=== PATIENT | male | born 1950 | race Caucasian/White ===

== ENCOUNTER 2018-04-21 08:48 | Emergency (ER) | payer MEDICARE ==
[~2018-04-21] VITALS: Ht 182.9 cm; Wt 97.5 kg
[~2018-04-21 08:48] MED LIST: HYDR-971 PO
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
[2018-04-21 10:41] VITALS: BP 140/92
--- NOTE | 2018-04-21 10:48 | RAD ---
Examination: RIBS BILAT PA CXR 4+V History: fall yesterday; pain Comparison/Correlation: None Findings: Total of 8 images of the ribs were obtained bilaterally. This includes 2 frontal views of the chest. Heart size and bony vasculature are normal. No infiltrate or pneumothorax. No pleural effusion. No fracture or bone destruction. Visualized soft tissues are unremarkable. Impression: No acute fracture. Electronically signed by: Surinder Mosley MD (04/21/2018 10:44 AM) [id number]
== END 2018-04-21 10:42 | disposition home or self-care (01) ==
LOC: ER 08:48
DX: S20.219A Contusion of unspecified front wall of thorax, initial encounter (principal); S80.812A Abrasion, left lower leg, initial encounter; E11.9 Type 2 diabetes mellitus without complications; J44.9 Chronic obstructive pulmonary disease, unspecified; I10 Essential (primary) hypertension; F17.210 Nicotine dependence, cigarettes, uncomplicated; F10.20 Alcohol dependence, uncomplicated; Z88.6 Allergy status to analgesic agent; Z88.8 Allergy status to other drugs, medicaments and biological substances; Y90.9 Presence of alcohol in blood, level not specified; W18.09XA Striking against other object with subsequent fall, initial encounter; Y93.01 Activity, walking, marching and hiking; Y92.098 Other place in other non-institutional residence as the place of occurrence of the external cause; Y99.8 Other external cause status
CPT/HCPCS: 71111; 99284

== ENCOUNTER 2019-07-06 11:15 | Emergency (ER) | payer MEDICARE ==
[~2019-07-06] VITALS: Ht 182.9 cm; Wt 101.2 kg
[~2019-07-06 11:15] MED LIST changes: +HYDR-3165 PO; -HYDR-971 PO
[2019-07-06] MEDS ORDERED: predniSONE 20 MG TABLET PO ONE (12:00)
[2019-07-06] MEDS ORDERED: LEVO500T59 PO (12:02)
[2019-07-06] MEDS ORDERED: PRED50TA PO (12:02)
[2019-07-06 12:15] VITALS: BP 123/61
--- NOTE | 2019-07-06 12:15 | RAD ---
PA and lateral views of the chest. Comparison: None. Indication: Shortness of air Findings: The heart size is normal. No pneumothorax or effusion. No air space or interstitial disease. The bony structures are intact. Impression: 1. No acute cardiopulmonary process. Electronically signed by: Ayaz Oquendo MD (07/06/2019 12:12 PM) [facility]
--- NOTE | 2019-07-06 14:35 | PHYS DOC ---
Past History Past Medical History: Anxiety, COPD, Depression, Diabetes, Hypertension Past Surgical History: Hip Replacement, Other Additional Past Surgical Histo: CATARACTS/TESTICULAR TUMOR REMOVED-BENIGN Smoking: Cigarettes Additional Smoking Information: 1/2 PACK Alcohol Use: Sober Drug Use: None Adult General Chief Complaint Chief Complaint: DYSPNEA/RESPIRATOY DISTRESS HPI HPI Patient is a 68 showed female history is COPD who presents with productive cough with yellow-green sputum times several days. Patient denies fever chills, nausea vomiting or sweats. Does report mild dyspnea increased from baseline. Patient has used inhaler 3-4 times daily. Contact his PCP was instructed to come to the ED for further evaluation. Patient does report left anterior chest wall pain worse after coughing. Previous pneumonia in the past 2 to years without hospitalization. No other acute symptoms or complaints.[] Review of Systems Review of Systems Review of symptoms as per history of present illness. All other review symptoms are negative. All other systems were reviewed and found to be within normal limits, except as documented in this note. Current Medications Current Medications Current Medications Medications (Trade) Dose Ordered Sig/Dasha Start Time Stop Time Status Last Admin Dose Admin Prednisone (Prednisone) 60 mg 1X ONCE 07/06/19 12:00 07/06/19 12:01 DC 07/06/19 11:46 60 MG Allergies Allergies Allergies Coded Allergies Type Severity Reaction Last Updated Verified terbinafine Allergy Unknown 03/28/18 Yes tramadol Allergy Unknown 03/28/18 Yes Physical Exam Physical Exam Constitutional: Well developed, well nourished, no acute distress, non-toxic appearance. [] HENT: Normocephalic, atraumatic, bilateral external ears normal, oropharynx moist, nose normal. [] Eyes: PERRLA, EOMI, conjunctiva normal, no discharge. [] Neck: Normal range of motion, no tenderness, supple, no stridor. [] Cardiovascular:Heart rate regular rhythm, no murmur, no edema [] Lungs & Thorax: Patient's, mild tachypnea, coarse rhonchi bilaterally with occasional expiratory wheeze.[] Abdomen: Bowel sounds normal, soft, no tenderness. [] Skin: Warm, dry, no erythema. [] Back: No tenderness, no CVA tenderness. [] Extremities: No tenderness. [] Neurologic: Alert and oriented X 3, normal motor function, normal sensory function, no focal deficits noted. [] Psychologic: Affect normal, judgement normal, mood normal. [] Current Patient Data Vital Signs Vital Signs Date Time Temp Pulse Resp B/P (MAP) Pulse Ox O2 Delivery O2 Flow Rate FiO2 07/06/19 12:15 71 20 123/61 (81) 95 Room Air 07/06/19 11:20 97.7 EKG EKG [] Radiology/Procedures Radiology/Procedures [Chest x-ray: No acute cardiopulmonary disease per radiology report.] Course & Med Decision Making Course & Med Decision Making Pertinent Labs and Imaging studies reviewed. (See chart for details) [Acute Doll bronchitis with COPD exacerbation. Breathing treatment, steroids given. Antibiotic prescribed. Recommend continued supportive care.] Dragon Disclaimer Clickberry Disclaimer This electronic medical record was generated, in whole or in part, using a voice recognition dictation system. Departure Departure: Impression: Primary Impression: COPD exacerbation Additional Impression: Acute bronchitis, bacterial Disposition: 01 HOME, SELF-CARE Condition: STABLE Patient Instructions: Chronic Obstructive Pulmonary Disease Exacerbation, [id number], Bronchitis Additional Instructions: Please take medications as directed and follow up with your PCP in 3-5 days for re-evaluation. Scripts Levofloxacin (LEVAQUIN) 500 Mg Tablet 1 TAB PO DAILY for 10 Days, #10 TAB 0 Refills Prov: BRAYAN RIVERS DO 07/06/19 Prednisone (PREDNISONE) 50 Mg Tablet 1 TAB PO DAILY, #5 TAB Prov: BRAYAN RIVERS DO 07/06/19 Problem Qualifiers BRAYAN RIVERS DO Jul 06, 2019 14:35
--- NOTE | 2019-07-07 11:16 | EKG ---
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
--- NOTE | 2019-07-07 11:21 | EKG ---
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
== END 2019-07-06 12:15 | disposition home or self-care (01) ==
LOC: ER 11:15
DX: J20.8 Acute bronchitis due to other specified organisms (principal); J44.0 Chronic obstructive pulmonary disease with (acute) lower respiratory infection; J44.1 Chronic obstructive pulmonary disease with (acute) exacerbation; B96.89 Other specified bacterial agents as the cause of diseases classified elsewhere; F41.9 Anxiety disorder, unspecified; E11.9 Type 2 diabetes mellitus without complications; I10 Essential (primary) hypertension; F17.210 Nicotine dependence, cigarettes, uncomplicated; Z88.6 Allergy status to analgesic agent; Z88.8 Allergy status to other drugs, medicaments and biological substances
CPT/HCPCS: 71046; 99284; J7512

== ENCOUNTER 2020-04-21 13:44 | Inpatient (IN) | payer MEDICARE ==
[~2020-04-21] VITALS: Ht 182.9 cm; Wt 96.3 kg
[~2020-04-21 13:44] MED LIST changes: +LEVO500T59 PO; +PRED50TA PO
[2020-04-21] MEDS ORDERED: diphenhydrAMINE 50 MG/ML VIAL IVP ONE ×2 (14:00)
[2020-04-21] MEDS ORDERED: IV NORMAL SALINE 1,000ML 1,000 ML IV ONE ×2 (14:00→15:00)
[2020-04-21] MEDS ORDERED: methylPREDNISolone SOD SUCC PF 125 MG/2 ML VIAL. IV ONE (14:00)
[2020-04-21] MEDS ORDERED: FAMOTIDINE 20 MG/2 ML VIAL IVP ONE (14:00)
--- NOTE | 2020-04-21 14:01 | EKG ---
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 : 1950 Requested By: ERIN SHEPPARD Order Number: [id number] Reading MD: Measurements Intervals [place] Rate: 111 P: -90 RI: 100 QRS: 103 QRSD: 112 T: 47 QT: 362 QTc: 496 Interpretive Statements SINUS TACHYCARDIA RIGHTWARD AXIS R-S TRANSITION ZONE IN V LEADS DISPLACED TO THE RIGHT INCOMPLETE RIGHT BUNDLE BRANCH BLOCK CONSIDER RIGHT VENTRICULAR HYPERTROPHY POSSIBLY ABNORMAL ECG Compared to ECG 04/21/2020 13:25:45 Right-axis deviation now present Incomplete right bundle-branch block now present Myocardial infarct finding no longer present T-wave abnormality no longer present Possible ischemia no longer present
[2020-04-21] MEDS ORDERED: ONDANSETRON PF 4 MG/2 ML VIAL. ONE (14:08)
[2020-04-21] MEDS ORDERED: ONDANSETRON PF 4 MG/2 ML VIAL. IVP ONE (14:15)
--- NOTE | 2020-04-21 14:33 | RAD ---
EXAM: CHEST 1 VIEW History: Shortness of breath COMPARISON: 07/06/2019 TECHNIQUE: Single portable radiograph of the chest FINDINGS: The cardiac silhouette is unremarkable. The lungs are clear bilaterally. The costophrenic sulci are clear and well demarcated. IMPRESSION: No radiographic evidence of an acute cardiopulmonary process. Electronically signed by: Darian Chambers MD (04/21/2020 2:30 PM) [id number]
[2020-04-21] MEDS ORDERED: IV NORMAL SALINE 1,000ML 1,000 ML IV SCH (15:52)
--- NOTE | 2020-04-21 15:56 | PHYS DOC ---
Past History Past Medical History: Diabetes, Hypertension Past Surgical History: Hip Replacement, Other Additional Past Surgical Histo: CARARACT SURGERY, TESTICULAR TUMOR REMOVED Smoking: Cigarettes Alcohol Use: None Drug Use: None General Adult EDM: Chief Complaint: ALLERGIC REACTION HPI: HPI: Patient is a 69-year-old male who was brought here by EMS from home due to allergic reaction to a amoxicillin. Patient had amoxicillin in the past, however this time he took the amoxicillin under different generic brand. Patient took 4 tablets of amoxicillin this morning prophylactically before he has his dental extraction next week. He started having itchy and having trouble breathing about 1 hour ago. EMS were called to take him here for evaluation. Patient denies any trouble swallowing, denies tongue swelling. Review of Systems: Review of Systems: Constitutional: Denies fever or chills Eyes: Denies change in visual acuity HENT: Denies nasal congestion or sore throat Respiratory: Denies cough, positive for shortness of air. Cardiovascular: Denies chest pain or edema GI: Denies abdominal pain, nausea, vomiting, bloody stools or diarrhea : Denies dysuria Musculoskeletal: Denies back pain or joint pain Integument: Positive for rash and itchy. Neurologic: Denies headache, focal weakness or sensory changes Endocrine: Denies polyuria or polydipsia Lymphatic: Denies swollen glands Psychiatric: Denies depression or anxiety Heart Score: Risk Factors: Risk Factors: DM, Current or recent (<one month) smoker, HTN, HLP, family history of CAD, obesity. Risk Scores: Score 0 - 3: 2.5% MACE over next 6 weeks - Discharge Home Score 4 - 6: 20.3% MACE over next 6 weeks - Admit for Clinical Observation Score 7 - 10: 72.7% MACE over next 6 weeks - Early Invasive Strategies Current Medications: Current Meds: Current Medications Medications (Trade) Dose Ordered Sig/Dasha Start Time Stop Time Status Last Admin Dose Admin Diphenhydramine HCl (Benadryl) 25 mg 1X ONCE 04/21/20 14:00 04/21/20 14:01 DC 04/21/20 14:12 25 MG Epinephrine HCl (EPINEPHrine AMPULE) 0.3 mg 1X ONCE 04/21/20 14:30 04/21/20 14:32 DC 04/21/20 14:37 0.3 MG Famotidine (Pepcid Vial) 20 mg 1X ONCE 04/21/20 14:00 04/21/20 14:01 DC 04/21/20 14:11 20 MG Methylprednisolone Sodium Succinate (SOLU-Medrol 125MG VIAL) 125 mg 1X ONCE 04/21/20 14:00 04/21/20 14:01 DC 04/21/20 14:11 125 MG Ondansetron HCl (Zofran) 4 mg 1X ONCE 04/21/20 14:15 04/21/20 14:20 DC 04/21/20 14:26 4 MG Sodium Chloride 1,000 ml @ 1,000 mls/hr 1X ONCE 04/21/20 15:00 04/21/20 15:59 04/21/20 14:51 1,000 MLS/HR Allergies: Allergies: Allergies Coded Allergies Type Severity Reaction Last Updated Verified amoxicillin Allergy Severe Anaphylaxis 04/21/20 Yes terbinafine Allergy Unknown 03/28/18 Yes tramadol Allergy Unknown 03/28/18 Yes Physical Exam: PE: Constitutional: Well developed, well nourished, no acute distress, non-toxic appearance. [] HENT: Normocephalic, atraumatic, bilateral external ears normal, oropharynx moist, no oral exudates, nose normal. [] Eyes: PERRLA, EOMI, conjunctiva normal, no discharge. [] Neck: Normal range of motion, no tenderness, supple, no stridor. [] Cardiovascular:Heart rate regular rhythm, no murmur [] Lungs & Thorax: Bilateral breath sounds clear to auscultation [] Abdomen: Bowel sounds normal, soft, no tenderness, no masses, no pulsatile masses. [] Skin: Warm, dry, macular rash on neck, upper extremity and chest area. Back: No tenderness, no CVA tenderness. [] Extremities: No tenderness, no cyanosis, no clubbing, ROM intact, no edema. [] Neurologic: Alert and oriented X 3, normal motor function, normal sensory function, no focal deficits noted. [] Psychologic: Affect normal, judgement normal, mood normal. [] Current Patient Data: Vital Signs: Vital Signs Date Time Temp Pulse Resp B/P (MAP) Pulse Ox O2 Delivery O2 Flow Rate FiO2 04/21/20 15:42 83 18 113/61 (78) 91 Room Air 04/21/20 15:30 2.0 04/21/20 13:46 97.6 EKG: EKG: [] Radiology/Procedures: Radiology/Procedures: [][address] [address] IMAGING REPORT Signed PATIENT: ÁNGEL LABOY ACCOUNT: [id number] : 1950 LOCATION: ER AGE: 69 SEX: M EXAM STATUS: PRE ER ORD. PHYSICIAN: ERIN SHEPPARD DO REASON: soa PROCEDURE: CHEST AP ONLY EXAM: CHEST 1 VIEW History: Shortness of breath COMPARISON: 07/06/2019 TECHNIQUE: Single portable radiograph of the chest FINDINGS: The cardiac silhouette is unremarkable. The lungs are clear bilaterally. The costophrenic sulci are clear and well demarcated. IMPRESSION: No radiographic evidence of an acute cardiopulmonary process. Electronically signed by: Darian Chambers MD (04/21/2020 2:30 PM) [id number] DICTATED AND SIGNED BY: DARIAN CHAMBERS MD DATE: 04/21/20 1430 CC: ERIN SHEPPARD DO; CAMILLA CANCHOLA DO ~ Course & Med Decision Making: Course & Med Decision Making Pertinent Labs and Imaging studies reviewed. (See chart for details) Patient is a 69-year-old male who developed anaphylactic reaction to amoxicillin. Patient was given medications in the ER, his condition improved, however he need to be admitted overnight due to the nature of the reaction. Dragon Disclaimer: Dragwale Disclaimer: This electronic medical record was generated, in whole or in part, using a voice recognition dictation system. Departure Departure: Impression: Primary Impression: Anaphylactic reaction Disposition: ADMITTED INPATIENT Admitting Physician: Rickey De La Cruz Condition: IMPROVED Referrals: CAMILLA CANCHOLA DO (PCP) ERIN SHEPPARD DO Apr 21, 2020 15:56
[2020-04-21] MEDS ORDERED: diphenhydrAMINE 50 MG/ML VIAL IVP PRN (16:00)
[2020-04-21] MEDS ORDERED: ONDANSETRON PF 4 MG/2 ML VIAL. IVP PRN ×2 (16:00→17:45)
[2020-04-21 17:16] LABS: CALCIUM 8.6 mg/dL (8.5-10.1); CREATININE 1.7 mg/dL (0.7-1.3); GFR 40.4; POTASSIUM 3.9 mmol/L (3.5-5.1)
[2020-04-21 17:17] LABS: BASO # 0.1 x10^3/uL (0.0-0.2); BASO % 1 % (0-3); EOS % 1 % (0-3); HEMATOCRIT 46.7 % (39.0-53.0); HEMOGLOBIN 15.4 g/dL (13.0-17.5); LYMPH % 24 % (24-48); MEAN CORPUSCULAR HEMOGLOBIN 35 pg (25-35); MEAN CORPUSCULAR HGB CONC 33 g/dL (31-37); MEAN CORPUSCULAR VOLUME 105 fL (79-100); MONO # 0.5 x10^3/uL (0.0-1.1); MONO % 6 % (0-9); NEUT # 5.7 x10^3uL (1.8-7.7); NEUT % 69 % (31-73); PLATELET COUNT 265 x10^3/uL (140-400); RED BLOOD COUNT 4.43 x10^6/uL (4.30-5.70); RED CELL DISTRIBUTION WIDTH 14.1 % (11.5-14.5); WHITE BLOOD COUNT 8.3 x10^3/uL (4.0-11.0)
[2020-04-21 17:21] LABS: ALBUMIN 2.6 g/dL (3.4-5.0); ALBUMIN/GLOBULIN RATIO 0.7 (1.0-1.7); TOTAL BILIRUBIN 0.4 mg/dL (0.2-1.0); TOTAL PROTEIN 6.2 g/dL (6.4-8.2)
[2020-04-21 17:27] LABS: MAGNESIUM 1.9 mg/dL (1.8-2.4)
[2020-04-21 17:38] VITALS: BP 122/80
[2020-04-21] MEDS ORDERED: ACETAMINOPHEN 325 MG TABLET PO PRN (17:45)
[2020-04-21] MEDS ORDERED: GABA-586 PO (17:52)
[2020-04-21] MEDS ORDERED: METO-239 PO (17:52)
[2020-04-21] MEDS ORDERED: TRAZ-120 PO (17:57)
[2020-04-21] MEDS ORDERED: AMLO5TAB10 PO (17:57)
[2020-04-21] MEDS ORDERED: ALPR1TAB2 PO (17:57)
[2020-04-21] MEDS ORDERED: GLIP5TAB10 PO (17:57)
--- NOTE | 2020-04-21 18:10 | NUR ---
ADMISSION NOTE: 69 y/o male brought to room ICU 2 by EMS and ED staff by alex. pt stood and ambulated to bed without difficulty, normal gait noted. Pt admitted for anaphylactic reaction to amoxicillin. pt A&Ox4, VSS. oriented to room and hospital policies given, visitation policy, meds reconcilled w/pt and belongings checked and left with pt. pt states he left his cell phone at home so is unable to give a phone number for a medicare contact specialist. pt made comfortable and given dinner tray.
[2020-04-21] MEDS ORDERED: ALBU2.5V8 IH (18:35)
[2020-04-21] MEDS ORDERED: GABA600T7 PO (19:32)
[2020-04-21] MEDS ORDERED: MELA3TAB19 PO (19:32)
[2020-04-21] MEDS ORDERED: ONDA-84 PO (19:32)
[2020-04-21] MEDS ORDERED: CARB1DRO20 OP (19:32)
[2020-04-21] MEDS ORDERED: ZOLP10TA PO (19:32)
[2020-04-21] MEDS ORDERED: NIAC500C6 PO (19:32)
[2020-04-21] MEDS ORDERED: CHLO473M MM (19:32)
[2020-04-21] MEDS ORDERED: HYDR170P TP (19:32)
[2020-04-21] MEDS ORDERED: METO25TA4 PO (19:32)
[2020-04-21] MEDS ORDERED: HYDR-2155 PO (19:32)
[2020-04-21] MEDS ORDERED: MULT-496 PO (19:32)
[2020-04-21] MEDS ORDERED: SODI44SP14 NS (19:32)
[2020-04-21] MEDS ORDERED: ALBUTEROL SULFATE 2.5 MG/3 ML NEBU. IH PRN (19:45)
--- NOTE | 2020-04-21 20:09 | NUR ---
Called [facility] to obtain patients [facility]. List received and medications entered. Only three were ordered for tonight. The remaining medications need to be ordered in the am.
[2020-04-21] MEDS ORDERED: traZODone 50 MG TABLET. PO SCH (21:00)
[2020-04-21] MEDS ORDERED: GABAPENTIN 300 MG CAPSULE. PO SCH (21:00)
[2020-04-21] MEDS ORDERED: traZODone 50 MG TABLET. PO PRN (21:45)
[2020-04-21 22:00] VITALS: BP 125/77
[2020-04-21] MEDS ORDERED: methylPREDNISolone SOD SUCC PF 40 MG/ML VIAL. IV SCH (22:00)
--- NOTE | 2020-04-21 22:27 | NUR ---
AMA/Discharge Note: Pt requested to go home. He stated "I just feel too stressed with all the IVs and cords and someone watching me all night. I need to go home immediately." Called to inform Dr. De La Cruz. 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 Informed security. IV x2 were discontinued and discharge instructions provided. Security walked pt to front door to meet cab.
--- NOTE | 2020-04-22 08:51 | DS ---
DATE OF DISCHARGE: 04/21/2020 ATTENDING PHYSICIAN: Dr. Dalton. This patient was admitted with an acute allergic reaction to PENICILLIN. I spoke with the ED physician. The patient about an hour after admission left against medical advice before I had a chance to see him. Please refer to the ED note for further details. ALYSA DALTON MD DR: FLORENCE/jyotsna JOB#: [id number] / [id number]
[2020-04-22] MEDS ORDERED: FLU VACC QS 2020-21(6MOS+)/PF 0.5 ML SYRINGE. VAX IM ONE (09:00)
--- NOTE | 2020-04-22 09:59 | HP ---
ADMIT DATE: 04/21/2020 ATTENDING PHYSICIAN: Dr. Dalton. This is a 69-year-old gentleman who normally is a [facility]. He was admitted with an acute ALLERGIC REACTION TO PENICILLIN. He was given fluids, steroids, histamine 1 and 2 blockade in the ED. He was admitted for overnight observation, I spoke with the ER physician. After the patient got admitted about an hour later, he felt better, he decided to leave against medical advice. He did not want to stay and once again he left the same day of admission before I had a chance to see him. He left against medical advice. For further details please refer to the ER note. ALYSA DALTON MD DR: FLORENCE/jyotsna JOB#: [id number] / [id number]
== END 2020-04-21 22:35 | disposition left against medical advice (07) | DRG 916 ==
LOC: ER 13:44 → ICU 15:51 → ER 17:03
PROVIDERS: ADMIT Hospitalist; ATTEND Hospitalist
DX: T88.6XXA Anaphylactic reaction due to adverse effect of correct drug or medicament properly administered, initial encounter (principal); T36.0X5A Adverse effect of penicillins, initial encounter; Y92.89 Other specified places as the place of occurrence of the external cause; Z53.29 Procedure and treatment not carried out because of patient's decision for other reasons; Z88.8 Allergy status to other drugs, medicaments and biological substances; Z79.899 Other long term (current) drug therapy
CPT/HCPCS: 36415; 71045; 80053; 83735; 83880; 84484; 85025; 93005; 96361; 96372; 96374; 96375; J0171; J1200; J2405; J2920; J2930; J3490; 99285-25; J7030